=== PATIENT | male | born 2000 ===

== ENCOUNTER 2019-11-19 01:52 | Emergency (ER) | payer SELFPAY ==
--- NOTE | 2019-11-19 03:37 | XRay Report ---
CHEST 1 VIEW INDICATION / CLINICAL INFORMATION: Chest Pain. COMPARISON: None available. FINDINGS: SUPPORT DEVICES: None. HEART / MEDIASTINUM: No significant abnormality. LUNGS / PLEURA: No significant pulmonary or pleural abnormality.. No pneumothorax. ADDITIONAL FINDINGS: No significant additional findings. IMPRESSION: 1. No acute findings. Signer Name: Pieter Merritt MD Signed: 11/19/2019 3:32 AM Workstation Name: [id number]
--- NOTE | 2019-11-19 06:06 | Emergency Department Report ---
Minor Respiratory - HPI Chief Complaint: Upper Respiratory Infection Stated Complaint: CHEST PAIN/HEADACHE/COLD SYMPTOMS Time Seen by Provider: 11/19/19 06:04 Duration: 3 Days Pain Location: Chest Severity: moderate Minor Respiratory: Yes Rhinorrhea, Yes Able to Tolerate Fluids, Yes Cough, Yes Chest Pain, No Sore Throat, No Ear Pain, No Sick Contacts, No Hemoptysis, No Shortness of Breath, No Fever Other History: Shine is a healthy 19-year-old male who presents with nasal congestion eye watering sore throat cough and sinus pressure. No fever. ED Review of Systems ROS: Stated complaint: CHEST PAIN/HEADACHE/COLD SYMPTOMS Other details as noted in HPI Constitutional: denies: chills, fever ENT: throat pain, congestion Respiratory: cough Cardiovascular: chest pain (Triage documentation noted chest pain with cough) Neurological: headache (Sinus pressure) ED Past Medical Hx - Past Medical History Previous Medical History?: No - Surgical History Past Surgical History?: No - Social History Smoking Status: Never Smoker Substance Use Type: None Minor Respiratory Exam - Exam General: Vital signs noted. No distress. Alert and acting appropriately. HEENT: Yes Moist Mucous Membranes, Yes Rhinorrhea, Yes Conjuctival Injection (mild bilateral), No Pharyngeal Erythema, No Pharyngeal Exudates Neck: Yes Supple Lungs: Yes Good Air Exchange, No Wheezes, No Ronchi, No Stridor, No Cough, No Labored Respirations, No Retractions, No Use of Accessory Muscles, No Other A bnormal Lung Sounds Heart: Yes Regular, No Murmur Abdomen: Yes Normal Bowel Sounds, No Tenderness, No Peritoneal Signs Skin: No Rash, No Edema Neurologic: Alert and oriented, no deficits. Musculoskeletal: Unremarkable. ED Course Vital Signs 11/19/19 02:02 Temperature 98.8 F Pulse Rate 70 Respiratory 18 Rate Blood Pressure 135/77 O2 Sat by Pulse 98 Oximetry ED Medical Decision Making - EKG Data EKG shows normal: sinus rhythm, axis, intervals, QRS complexes, ST-T waves Rate: normal - Radiology Data Radiology results: report reviewed Chest radiograph: No acute process according to radiology impression - Medical Decision Making Viral URI recommended [id number] supportive therapy Critical care attestation.: If time is entered above; I have spent that time in minutes in the direct care of this critically ill patient, excluding procedure time. ED Disposition Clinical Impression: Upper respiratory infection Disposition: DC- TO HOME OR SELFCARE Is pt being admited?: No Does the pt Need Aspirin: No Condition: Stable Instructions: Upper Respiratory Infection (ED) Forms: Work/School Release Form(ED)
[2019-11-19 06:19] VITALS: BP 118/62
== END 2019-11-19 06:18 | disposition home or self-care (01) ==
LOC: ED 01:52
DX: J06.9 Acute upper respiratory infection, unspecified (principal)
CPT/HCPCS: 71045; 93005; 93010; 99283

== ENCOUNTER 2021-03-18 20:35 | Emergency (ER) | payer SELFPAY ==
--- NOTE | 2021-03-19 01:32 | Emergency Department Report ---
ED Rash HPI - HPI Chief Complaint: Skin Rash Stated Complaint: ALLERGIC REACTION/RASH Time Seen by Provider: 03/19/21 01:14 Suspected Cause: Food Rash Symptoms: Yes Itching, No Facial Swelling, No Breathing Difficulties, No Choking Sensation, No Wheezing/Dyspnea, No Blistering, No Fever, No Malaise, No Myalgias Severity: mild, moderate ED Review of Systems ROS: Stated complaint: ALLERGIC REACTION/RASH Other details as noted in HPI Comment: All other systems reviewed and negative ED Past Medical Hx - Past Medical History Previous Medical History?: No - Surgical History Past Surgical History?: No - Social History Smoking Status: Current Every Day Smoker Substance Use Type: None Rash Exam - Exam General: Vital signs noted. No distress. Alert and acting appropriately. HEENT: No Periorbital Edema, No Conjuctival Injection, No Chemosis, No Perioral Edema, No Tongue Edema, No Uvular Edema, No Compromised Airway, No Drooling Lungs: Yes Good Air Exchange (Normal Breath Sounds), No Wheezes, No Ronchi, No Stridor, No Cough, No Labored Respirations, No Retractions, No Use of Accessory Muscles, No Other Abnormal Lung Sounds Heart: Yes Regular, No Murmur Skin: Yes Urticarial Rash, Yes Maculopapular Rash, Yes Erythema, No Excoriations, No Tenderness, No Edema, No Encrustations Other: Positive: Abdomen Normal, Neurologic Normal, Musculoskeletal Normal ED Course Vital Signs 03/18/21 22:57 Temperature 98.6 F Pulse Rate 66 Respiratory 18 Rate Blood Pressure 114/74 O2 Sat by Pulse 100 Oximetry ED Medical Decision Making - Medical Decision Making This patient presents with symptoms consistent with acute hypersensitivity reaction, likely acute allergic reaction. Presentation not consistent with acute anaphylaxis (lack of pulmonary, dermatologic, cardiovascular or GI symptoms, lack of hypotension or exposure to known allergen), angioedema, serum sickness(no recent drug exposure, lack of fevers, arthralgias), ingestion of preformed toxin. No evidence of airway compromise or shock at this time. Plan to treat for allergic reaction with H2/H1 blockers, steroids. No indication for epinephrine at this time. Plan Critical care attestation.: If time is entered above; I have spent that time in minutes in the direct care of this critically ill patient, excluding procedure time. ED Disposition Clinical Impression: Allergic reaction, Rash and nonspecific skin eruption Disposition: TO HOME OR SELFCARE Is pt being admited?: No Does the pt Need Aspirin: No Condition: Stable Instructions: Rash, Adult, Allergies, Adult, Hives, [id number] Referrals: [facility] [Provider Group] - 3-5 Days
== END 2021-03-19 01:46 | disposition home or self-care (01) ==
LOC: ED 20:35
CPT/HCPCS: 99282